=== PATIENT | male | born 1960 | race Hispanic/Latino ===

== ENCOUNTER → 2023-01-27 | Outpatient (CLI) | payer OTHER | END | disposition home or self-care (01) | LOC: OIH 10:35 | PROVIDERS: ATTEND Internal Medicine Pulmonary Disease | DX: Z13.6 Encounter for screening for cardiovascular disorders (principal) | CPT/HCPCS: 75571 ==

== ENCOUNTER → 2024-04-12 | Outpatient (CLI) | payer BC ==
--- NOTE | 2024-04-13 01:32 | HMCSR ---
APPROVED REPORT EXAM: Two-dimensional and M-mode echocardiogram with Doppler and color Doppler. INDICATION ICD: Z95.1 Presence of CABG Hypertension 2D Dimensions RVDd4.0 cmLVEF(%)58.1 (>50%)LVED Vol(simp.)118.0 mL IVSd1.1 (0.7-1.1cm)FS(%)30 %LVES Vol(simp.)54.0 mL LVDd4.4 (3.8-5.6cm)Ao Root(2D)3.3 (2.0-3.7cm)LVEF(%, simp.)55 % PWd1.1 (0.7-1.1cm)LVOT diam2.1 (1.8-2.4cm)LA ESV INDEX (BP)27.21 mL/m2 LVDs3.1 (2.5-4.0cm)IVC diam1.5 cm Aortic Valve AoV Vmax1.2 m/Prieto Peak GR5.5 mmHgLVOT Vmax1.1 m/s AoV VTI0.2 mAo Mean GR3.3 mmHgLVOT VTI0.22 m FIDE (VMAX)3.2 cm2AVA (VTI) 3.2 cm2 Mitral Valve MV E Vmax89.2 cm/sDECEL Ymqs114 ms MV A Vmax75.2 cm/sP 1/2 T53 ms E/A ratio1.2MVA (PHT)4.1 cm2 MR Max PG82 mmHg TDI E/E' Vkxqfa01.8E/E' Sgngniu05.9 Pulmonary Valve PV Vmax1.2 m/sPV VTI0.24 mPV Mean GR3 mmHg PV Peak GR5.7 mmHgPI End Mayra. Gadiel 0.9 cm/s Tricuspid Valve TR Vmax2.0 m/sRAP (EST) 3 kqEcEYJO62.0 mmHg TR Peak GR16.0 mmHg Left Ventricle The left ventricle is normal in size. There is paradoxical septal wall motion noted. The other gandara are grossly normal in function. Mild concentric left ventricular hypertrophy. Left ventricular systol ic function is normal, estimated LVEF is 55 to 60%. Grade 1 diastolic dysfunction. Right Ventricle The right ventricle is normal size. Right ventricular systolic function is mildly to moderately reduc ed. Atria The left atrium size is normal. The right atrium size is normal. Aortic Valve Aortic valve is trileaflet. Aortic valve leaflets are sclerotic but open well. Trace aortic regurgita tion. There is no aortic valvular stenosis. Mitral Valve The mitral valve is normal in structure and function. Trace mitral regurgitation. There is no mitral valve stenosis. Tricuspid Valve The tricuspid valve is normal in structure and function. Trace tricuspid regurgitation. RVSP is 16 m mHg. Pulmonic Valve Pulmonic valve is not well visualized. Great Vessels The aortic root is normal in size. The IVC is normal in size and collapses >50% with inspiration. Pericardium No pericardial effusion. Conclusion The cardiac chambers are normal in size. Mild concentric left ventricular hypertrophy. There is paradoxical septal wall motion noted. The other gandara are grossly normal in function. Left ventricular systolic function is normal, estimated LVEF is 55 to 60%. Grade 1 diastolic dysfunction. Trace aortic regurgitation. Trace mitral regurgitation. Trace tricuspid regurgitation. PASP is 19 mmHg. No pericardial effusion.
== END | disposition home or self-care (01) ==
LOC: SHCH 10:42
PROVIDERS: ATTEND Internal Medicine Cardiovascular Disease
DX: I35.1 Nonrheumatic aortic (valve) insufficiency (principal); I25.10 Atherosclerotic heart disease of native coronary artery without angina pectoris; I11.9 Hypertensive heart disease without heart failure; Z95.1 Presence of aortocoronary bypass graft
CPT/HCPCS: 93306